=== PATIENT | male | born 1980 | race Two or more races ===

== ENCOUNTER 2021-01-20 19:51 | Emergency (ER) | payer SELFPAY ==
[~2021-01-20] VITALS: Ht 165.1 cm; Wt 71.7 kg
[2021-01-20] MEDS ORDERED: AZITHROMYCIN 500 MG TABLET ONE (23:09)
[2021-01-20 23:12] VITALS: BP 126/81
[2021-01-20] MEDS ORDERED: AZITHROMYCIN 500 MG TABLET PO ONE (23:30)
--- NOTE | 2021-01-20 23:32 | NUR ---
Patient given discharge instructions and they have confirmed that they understand the instructions. Patient ambulatory with steady gait.
== END 2021-01-20 23:34 | disposition home or self-care (01) ==
LOC: ED 20:30
DX: J18.9 Pneumonia, unspecified organism (principal); Z20.822 Contact with and (suspected) exposure to COVID-19
CPT/HCPCS: 71045; 93005; 99285; U0003; U0005